=== PATIENT | female | born 1975 | race Caucasian/White ===

== ENCOUNTER 2018-11-21 11:23 | Inpatient (IN) | payer MEDICAID ==
[2018-11-21] MEDS ORDERED: NS 500 ML IV ONE (11:38)
--- NOTE | 2018-11-21 11:41 | EDPHY ---
H & P Stated Complaint: fell, hit back of head, feels weak Time Seen by Provider: 11/21/18 11:39 HPI/ROS: CHIEF COMPLAINT: Lightheaded, head injury HISTORY OF PRESENT ILLNESS: 43-year-old female female arrives via ambulance after she was entering her physical therapy office, felt lightheaded, had a syncopal episode impacted the occiput of his head. No seizure activity noted. No incontinence. No antecedent chest pain or headache. Currently she is complaining of "feeling weak " which she notes has been present for several weeks. No URI symptoms. No flu-like symptoms. No fever or chills. No cough. No dyspnea. Denies: Chest pain, dyspnea, back pain, midline C-spine pain, peripheral paresthesia, weakness, numbness, acute alcohol or drug use, nausea or vomiting, palpitations. PRIMARY CARE PROVIDER: Stefania Burton NP REVIEW OF SYSTEMS: 10 systems reviewed and negative with the exception of the elements mentioned in the history of present illness PAST MEDICAL/SURGICAL HISTORY: Prior history of CVA and atrial fibrillation post gastric bypass surgery at age 36. History of chronic back and hip pain . Chronic opiate dependence. no anticoagulant use, SOCIAL HISTORY: denies alcohol use at time of incident PHYSICAL EXAM 1) GENERAL: Alert oriented, Appears to be in no acute distress. Answering questions appropriately. 2) HEAD: Normocephalic, atraumatic no hematoma, no depression no laceration 3) HEENT: Pupils equal, round, reactive to light bilaterally. Negative Horners. Nasopharynx, oropharynx, clear. No deformity or angulation of nose. No septal hematoma. No rhinorrhea. No oral trauma. Ears bilaterally with normal tympanic membranes. No hemotympanum. No fluid or blood in the external auditory canal. No raccoon eyes. No Blue sign. Teeth are normally aligned with no gross malocclusion, TMJ bilaterally nontender, facial bones nontender including the zygomatic arch, maxilla mandible. 4) NECK: No pre-hospital cervical collar is on. Posterior cervical spine is examined. She is unable to differentiate true midline versus just lateral of midline lower cervical spine pain. No crepitus. No effusion. No fluctuance. Cervical collar placed at that time. 5) LUNGS: Clear to auscultation bilaterally, no wheezes, no rhonchi, no retractions. No obvious signs of trauma. No chest wall pain. No flaring, no grunting. Moving symmetrically. No crepitus. 6) HEART: [Regular rate and rhythm, 7) ABDOMEN: No guarding, no rebound, no focal tenderness, no peritoneal signs, no signs of trauma, no ecchymosis 8) MUSCULOSKELETAL: Moving all extremities, no focal areas of tenderness, no obvious trauma. 9) BACK: No midline vertebral tenderness, no fluctuance, no step-off, no obvious trauma, no visual or palpable abnormality. 10) SKIN: No laceration. No abrasion 11) NEURO: Awake, alert, and oriented to person, place and time. Answers questions appropriately. There were no obvious focal neurologic abnormalities. No cerebellar dysfunction. Cranial nerves 2 through to 12 intact. Normal steady gait. Upper and lower extremities bilaterally with strength 5 / 5, reflexes 2+. 12) CERVICAL NEURO EXAM: Bilateral reflexes of biceps triceps brachioradialis intact equal bilaterally Motor exam: deltoid, biceps, wrist extension, tricep, finger extension, finger flexion, finger abduction intact equal bilaterally 5/5 DIFFERENTIAL DIAGNOSIS: Syncope including but not limited to vasovagal syncope , arrhythmia, dehydration, and blood loss. - Personal History LMP (Females 10-55): Irregular Current Tetanus/Diphtheria Vaccine: Yes Current Tetanus Diphtheria and Acellular Pertussis (TDAP): Yes - Medical/Surgical History Hx Asthma: No Hx Chronic Respiratory Disease: No Hx Diabetes: No Hx Cardiac Disease: No Hx Renal Disease: No Hx Cirrhosis: No Hx Alcoholism: No Hx HIV/AIDS: No Hx Splenectomy or Spleen Trauma: No - Social History Smoking Status: Light smoker Constitutional: Initial Vital Signs Temperature (C) 36.9 C 11/21/18 11:28 Heart Rate 110 H 11/21/18 11:28 Respiratory Rate 16 11/21/18 11:28 Blood Pressure 103/71 11/21/18 11:28 O2 Sat (%) 96 11/21/18 11:28 O2 Delivery Mode Room Air Allergies/Adverse Reactions: carbamazepine [From Tegretol] Allergy (Verified 11/21/18 11:34) ketorolac [From Toradol] Allergy (Verified 11/21/18 11:34) tramadol Allergy (Verified 11/21/18 11:34) trazodone Allergy (Verified 11/21/18 11:34) Home Medications: Medication Instructions Recorded Aspirin EC [Aspirin EC 81 mg (*)] 81 mg PO DAILY 11/21/18 Meclizine HCl [Meclizine HCl 25 mg 25 mg PO BID 11/21/18 (RX,OTC)] Tapentadol HCl [Nucynta] 100 mg PO 11/21/18 oxyCODONE IR 10 mg 11/21/18 Medical Decision Making - Diagnostics Imaging Results: Imaging Impressions Head CT 11/21/18 11:45 Impression: 1. Negative. No acute intracranial hemorrhage or fracture. 2. Encephalomalacia involving the right caudate head and periventricular deep right frontal lobe, likely from old cerebrovascular accident. Findings discussed with Emergency Department physician news production assistant, Abisai Harper at 11/21/2018 13:11. Cervical Spine CT 11/21/18 11:47 Impression: 1. No acute fracture or soft tissue swelling. 2. If the patient has persistent pain or neurologic deficits, consider cervical spine MRI. 3. Right upper lobe airspace consolidation-aspiration, asymmetric edema, contusion, or evolving right upper lobe pneumonia. Findings discussed with Emergency Department physician news production assistant, Abisai Harper on 11/21/2018, 13:11. Chest X-Ray 11/21/18 14:14 Impression: 1. Patchy infiltrates throughout the right lung. Consider pneumonia versus possibility of aspiration or unilateral pulmonary edema. Images reviewed myself ED Course/Re-evaluation: 1:30 p.m.: Re-evaluation, patient feeling well. 1:55 p.m.: Patient complaining of nausea, will be given antiemetic. 2:15 p.m.: Re-evaluation, patient does not feel she is able to be discharged, does not feel she is able to care for herself at home, states she has been feeling weak. 2: 20 p.m.: Consultation with hospitalist Dr. Orr who will admit patient 3:00 p.m.: Re-evaluation with serial exams. Discussed with patient her x-rays interpreted by staff radiologist show him multiple patchy infiltrates. Patient has no complaints of URI symptoms, no cough , no dyspnea, no chest pain, no fever or chills, no recent illness. She is maintaining normal saturations with lungs that are clear bilaterally. Doubt sepsis. Will hold on antibiotic therapy. Care of patient under supervision of secondary supervising physician Dr Maldonado with whom I discussed case. - Data Points Laboratory Results: Laboratory Results 11/21/18 11:50 11/21/18 11/21/18 11/21/18 13:46 12:10 12:10 WBC RBC Hgb Hct MCV MCH MCHC RDW Plt Count MPV Neut % (Auto) Lymph % (Auto) Crenshaw % (Auto) Eos % (Auto) Baso % (Auto) Nucleat RBC Rel Count Absolute Neuts (auto) Absolute Lymphs (auto) Absolute Monos (auto) Absolute Eos (auto) Absolute Basos (auto) Absolute Nucleated RBC Immature Gran % Immature Gran # Sodium Pending REJ Potassium Pending REJ Chloride Pending REJ Carbon Dioxide Pending REJ Anion Gap Pending REJ BUN Pending REJ Creatinine Pending REJ Estimated GFR Pending REJ Glucose Pending REJ Calcium Pending REJ POC Troponin I Beta HCG, Qual NEGATIVE 11/21/18 11/21/18 11/21/18 11:53 11:50 11:50 WBC 13.44 10^3/uL H 10^3/uL (3.80-9.50) RBC 4.41 10^6/uL 10^6/uL (4.18-5.33) Hgb 14.1 g/dL g/dL (12.6-16.3) Hct 42.9 % % (38.0-47.0) MCV 97.3 fL fL (81.5-99.8) MCH 32.0 pg pg (27.9-34.1) MCHC 32.9 g/dL g/dL (32.4-36.7) RDW 14.8 % % (11.5-15.2) Plt Count 290 10^3/uL 10^3/uL (150-400) MPV 9.9 fL fL (8.7-11.7) Neut % (Auto) 85.2 % H % (39.3-74.2) Lymph % (Auto) 5.7 % L % (15.0-45.0) Crenshaw % (Auto) 7.9 % % (4.5-13.0) Eos % (Auto) 0.1 % L % (0.6-7.6) Baso % (Auto) 0.1 % L % (0.3-1.7) Nucleat RBC Rel Count 0.0 % % (0.0-0.2) Absolute Neuts (auto) 11.45 10^3/uL H 10^3/uL (1.70-6.50) Absolute Lymphs (auto) 0.77 10^3/uL L 10^3/uL (1.00-3.00) Absolute Monos (auto) 1.06 10^3/uL H 10^3/uL (0.30-0.80) Absolute Eos (auto) 0.01 10^3/uL L 10^3/uL (0.03-0.40) Absolute Basos (auto) 0.02 10^3/uL 10^3/uL (0.02-0.10) Absolute Nucleated RBC 0.00 10^3/uL 10^3/uL (0-0.01) Immature Gran % 1.0 % % (0.0-1.1) Immature Gran # 0.13 10^3/uL H 10^3/uL (0.00-0.10) Sodium REJ Potassium REJ Chloride REJ Carbon Dioxide REJ Anion Gap REJ BUN REJ Creatinine REJ Estimated GFR REJ Glucose REJ Calcium REJ POC Troponin I 0.00 ng/mL ng/mL (0.00-0.08) Beta HCG, Qual Medications Given: Discontinued Medications Sodium Chloride (Ns) 500 mls @ 1,000 mls/hr IV EDNOW ONE PRN Reason: Protocol Stop: 11/21/18 12:07 Last Admin: 11/21/18 12:29 Dose: 500 mls Sodium Chloride (Ns) 1,000 mls @ 0 mls/hr IV ONCE ONE PRN Reason: Wide Open Stop: 11/21/18 14:16 Last Admin: 11/21/18 14:31 Dose: 1,000 mls Ondansetron HCl (Zofran) 4 mg IVP EDNOW ONE Stop: 11/21/18 13:56 Last Admin: 11/21/18 13:56 Dose: 4 mg Point of Care Test Results: Chemistry 11/21/18 11:53 POC Troponin I 0.00 ng/mL ng/mL (0.00-0.08) Departure - Departure Disposition: [facility] In[facility] Acute Clinical Impression: Head injury Syncope Qualifiers: Syncope type: unspecified Qualified Code(s): R55 - Syncope and collapse Condition: Fair
--- NOTE | 2018-11-21 11:58 | CPEKG ---
Test Reason : OPEN Blood Pressure : / mmHG Vent. Rate : 110 BPM Atrial Rate : 110 BPM P-R Int : 129 ms QRS Dur : 072 ms QT Int : 312 ms P-R-T Axes : 071 262 055 degrees QTc Int : 423 ms Sinus tachycardia Left anterior fascicular block Consider left ventricular hypertrophy Confirmed by Khoa Ojeda ([id number]) on 11/21/2018 11:58:17 AM Referred By: KHOA OJEDA Confirmed By:Khoa Ojeda
[2018-11-21 12:01] LABS: PLATELET COUNT 290 10^3/uL (150-400)
[2018-11-21] MEDS ORDERED: ONDANSETRON 4 MG/2 ML VIAL ONE (13:53)
[2018-11-21] MEDS ORDERED: ONDANSETRON 4 MG/2 ML VIAL IVP ONE (13:55)
[2018-11-21] MEDS ORDERED: NS 1,000 ML IV ONE (14:15)
[2018-11-21] MEDS ORDERED: ONDANSETRON DISINTEGRATING 4 MG TAB PO PRN (14:46)
[2018-11-21] MEDS ORDERED: ONDANSETRON 4 MG/2 ML VIAL IVP PRN (14:46)
[2018-11-21] MEDS ORDERED: oxyCODONE IR 5 MG TAB PO PRN (14:46)
[2018-11-21] MEDS ORDERED: ACETAMINOPHEN 325 MG TAB PO PRN (14:46)
[2018-11-21] MEDS ORDERED: IBUPROFEN 200 MG TAB PO PRN (14:46)
--- NOTE | 2018-11-21 14:48 | PDGENHP ---
History and Physical - Chief Complaint fall - History of Present Illness 43yo F with history of gastric bypass in 2012 complicated by post-op atrial fibrillation and CVA presents after fall. She was being picked up to go to PT and felt very unsteady on her feet. No vertigo/dizziness. She was having trouble catching her balance and fell backward, striking her head. She did not lose consciousness. No antecedent chest pain, palpitations or shortness of breath. No recent infectious symptoms. She denies any seizure activity or loss of bowel/bladder control. She reports having episodes similar to this for at least 3-4 months but has not actually fallen before. She denies any recent medication changes. Reports 20-25# weight loss over last few months; doesn't eat very much. In the ED, she was unable to safely ambulate and felt unsafe to go home. She is being admitted for further evaluation and management. Reviewed her outpatient records in [facility]. She saw her PCP 11/11. These notes reports episodes of dizziness, ? syncope, orthostasis, and intermittent "loss of awareness." She has not had full evaluation of these episodes. History Information - Allergies/Home Medication List Allergies/Adverse Reactions: carbamazepine [From Tegretol] Allergy (Verified 11/21/18 15:08) Unknown ketorolac [From Toradol] Allergy (Verified 11/21/18 15:08) Unknown tramadol Allergy (Verified 11/21/18 15:08) Hives trazodone Allergy (Verified 11/21/18 15:08) Hives, Throat Swelling Home Medications: Amitriptyline HCl [Elavil 50 mg (*)] 50 mg PO HS 11/21/18 [Last Taken 11/20/18] Aspirin EC [Aspirin EC 81 mg (*)] 81 mg PO HS 11/21/18 [Last Taken 11/20/18] Cyclobenzaprine [Flexeril 10 MG (*)] 10 mg PO TID PRN 11/21/18 [Last Taken Unknown] Gabapentin [Neurontin] 600 mg PO TID 11/21/18 [Last Taken 11/20/18] Glycopyrrolate 1 mg PO BID 11/21/18 [Last Taken 11/20/18] Meclizine HCl 25 mg PO BID PRN 11/21/18 [Last Taken 11/20/18] Mirtazapine [Remeron] 15 mg PO HS 11/21/18 [Last Taken 11/20/18] Promethazine HCl [Phenergan 25mg (*)] 25 mg PO Q6H PRN 11/21/18 [Last Taken Unknown] Tapentadol HCl [Nucynta] 100 mg PO TID PRN 11/21/18 [Last Taken 11/20/18] Zolpidem Tartrate [Ambien] 10 mg PO HS 11/21/18 [Last Taken 11/19/18] oxyCODONE IR [Oxycodone Ir (*)] 10 mg PO BID 11/21/18 [Last Taken 11/20/18] I have personally reviewed and updated: family history, medical history, social history, surgical history - Past Medical History Additional medical history: gastric bypass complicated by post-operative atrial fibrillation and CVA with no residual deficits (2011), chronic pain with opiate use and dependency, DMITRI not on CPAP, depression - Surgical History Additional surgical history: gastric bypass, cholecystectomy, appendectomy, hysterectomy - Family History Positive for: non-pertinent - Social History Smoking Status: Light smoker Alcohol Use: None Drug Use: None Additional social history: Lives with mother and [id number]. Applying for disability. Review of Systems Review of Systems: ROS: 10pt was reviewed & negative except for what was stated in HPI & below Physical Exam Physical Exam: Temp Pulse Resp BP Pulse Ox 36.9 C 100 16 105/78 98 11/21/18 11:28 11/21/18 14:03 11/21/18 14:03 11/21/18 14:03 11/21/18 14:03 Constitutional: no apparent distress, other (appears older than stated age) Eyes: PERRL, anicteric sclera, EOMI Ears, Nose, Mouth, Throat: moist mucous membranes, other (edentulous, appears to have healed wounds/ulcers around mouth) Cardiovascular: regular rate and rhythym, no murmur, rub, or gallop, No JVD, No edema Respiratory: no respiratory distress, no rales or rhonchi, clear to auscultation Gastrointestinal: normoactive bowel sounds, soft, non-tender abdomen, no palpable masses Genitourinary: no bladder fullness, no bladder tenderness Skin: warm, normal color, no rashes or abrasions, no fluctuance, no induration, No mottled Neurologic: AAOx3, sensation intact bilaterally, CN II-XII Intact, No weakness, No numbness, No pronator drift Psychiatric: interacting appropriately Lab Data & Imaging Review 11/21/18 11:50 11/21/18 13:46 WBC 13.44 10^3/uL (3.80-9.50) H 11/21/18 11:50 RBC 4.41 10^6/uL (4.18-5.33) 11/21/18 11:50 Hgb 14.1 g/dL (12.6-16.3) 11/21/18 11:50 Hct 42.9 % (38.0-47.0) 11/21/18 11:50 MCV 97.3 fL (81.5-99.8) 11/21/18 11:50 MCH 32.0 pg (27.9-34.1) 11/21/18 11:50 MCHC 32.9 g/dL (32.4-36.7) 11/21/18 11:50 RDW 14.8 % (11.5-15.2) 11/21/18 11:50 Plt Count 290 10^3/uL (150-400) 11/21/18 11:50 MPV 9.9 fL (8.7-11.7) 11/21/18 11:50 Neut % (Auto) 85.2 % (39.3-74.2) H 11/21/18 11:50 Lymph % (Auto) 5.7 % (15.0-45.0) L 11/21/18 11:50 Woodward % (Auto) 7.9 % (4.5-13.0) 11/21/18 11:50 Eos % (Auto) 0.1 % (0.6-7.6) L 11/21/18 11:50 Baso % (Auto) 0.1 % (0.3-1.7) L 11/21/18 11:50 Nucleat RBC Rel Count 0.0 % (0.0-0.2) 11/21/18 11:50 Absolute Neuts (auto) 11.45 10^3/uL (1.70-6.50) H 11/21/18 11:50 Absolute Lymphs (auto) 0.77 10^3/uL (1.00-3.00) L 11/21/18 11:50 Absolute Monos (auto) 1.06 10^3/uL (0.30-0.80) H 11/21/18 11:50 Absolute Eos (auto) 0.01 10^3/uL (0.03-0.40) L 11/21/18 11:50 Absolute Basos (auto) 0.02 10^3/uL (0.02-0.10) 11/21/18 11:50 Absolute Nucleated RBC 0.00 10^3/uL (0-0.01) 11/21/18 11:50 Immature Gran % 1.0 % (0.0-1.1) 11/21/18 11:50 Immature Gran # 0.13 10^3/uL (0.00-0.10) H 11/21/18 11:50 Sodium REJ 11/21/18 12:10 Potassium REJ 11/21/18 12:10 Chloride REJ 11/21/18 12:10 Carbon Dioxide REJ 11/21/18 12:10 Anion Gap REJ 11/21/18 12:10 BUN REJ 11/21/18 12:10 Creatinine REJ 11/21/18 12:10 Estimated GFR REJ 11/21/18 12:10 Glucose REJ 11/21/18 12:10 Calcium REJ 11/21/18 12:10 POC Troponin I 0.00 ng/mL (0.00-0.08) 11/21/18 11:53 Beta HCG, Qual NEGATIVE 11/21/18 12:10 Visualized and Interpreted Chest x-ray results: Yes Visualized and Interpreted imaging results: Yes Interpretation: CXR: no focal infiltrate or effusion, normal heart size, mild increase in vascularity in right lung field Visualized and Interpreted EKG results: Yes EKG additional interpertation: ECG: NSR, early R wave progression (could be lead placement), normal intervals, no acute ischemic changes (interp by me) Assessment & Plan Assessment: 43yo F with history of gastric bypass in 2011 complicated by post-op atrial fibrillation and CVA presents after fall. Plan: 1. Fall with dysequilibrium: Non-focal neuro exam. Has had several brain MRIs, most recent 05/2018 with chronic right basal ganglia CVA. I do not think we need to repeat this. I suspect this is likely an issue with polypharmacy as virtually all of her medications are centrally acting. Also at risk for vitamin deficiency with bypass surgery so will eval for this. - PT/OT - Check B1, B2, B6, B12, vitamin C - Stop meclizine (no vertigo). Wean/taper meds as able 2. Sinus tachycardia: Suspect related to pain, dehydration. - Gentle IVF 3. Weight loss: Reports 20-25# over last few months. - Needs outpatient GI follow up (missed appointment with them yesterday) 3. H/o hemorrhagic CVA: No residual deficits. - Resume home aspirin 4. Chronic pain with opiate use and dependency - Continue home nucynta and oxycodone 10mg BID 5. Depression - Resume home elavil and remeron VTE ppx: LMWH Code: full Diet: regular Dispo: Admit under observation
[2018-11-21] MEDS ORDERED: MECLIZINE HCL 25 MG TAB PO PRN (15:41)
[2018-11-21] MEDS ORDERED: TAPENTADOL HCL 50 MG TAB PO PRN (15:41)
[2018-11-21] MEDS: GABAPENTIN 300 MG CAP PO SCH ×2 (16:46→21:33)
[2018-11-21] MEDS: CYCLOBENZAPRINE 10 MG TAB PO PRN ×2 (16:46→21:40)
[2018-11-21] MEDS: NS 1,000 ML IV SCH (16:46)
[2018-11-21] MEDS: PROMETHAZINE HCL 25 MG TAB PO PRN (17:27)
[2018-11-21] MEDS: oxyCODONE IR 5 MG TAB PO SCH (21:32)
[2018-11-21] MEDS: ASPIRIN EC 81 MG TAB PO SCH (21:33)
[2018-11-21] MEDS: MIRTAZAPINE 15 MG TAB PO SCH (21:33)
[2018-11-21] MEDS: AMITRIPTYLINE HCL 50 MG TAB PO SCH (21:33)
[2018-11-21] MEDS: ZOLPIDEM TARTRATE 5 MG TAB PO SCH (21:33)
[2018-11-22] MEDS: NS 1,000 ML IV SCH ×2 (01:23→08:48)
[2018-11-22] MEDS: GABAPENTIN 300 MG CAP PO SCH ×3 (08:41→23:05)
[2018-11-22] MEDS: ENOXAPARIN 40 MG/0.4 ML SYR SC SCH (08:41)
[2018-11-22] MEDS: oxyCODONE IR 5 MG TAB PO SCH ×2 (08:41→20:02)
[2018-11-22] MEDS: CYCLOBENZAPRINE 10 MG TAB PO PRN ×3 (08:48→20:01)
--- NOTE | 2018-11-22 10:12 | HOSPPROG ---
Hospitalist Progress Note Assessment/Plan: 43yo F with history of gastric bypass in 2011 complicated by post-op atrial fibrillation and CVA presents after fall. First encounter, chart reviewed. * Fall with dysequilibrium - recent MRI 05/2018 showed chronic right basal ganglia CVA. - possibly falling due to polypharmacy (on Nucynta, oxy, Flexeril, Meclizine)- reviewed w Allison my concern this is impacting her falling. - B1, B2, B6, B12, vitamin C (pending) - TSH stable - has some hypotension which may impact her in addition, will ask for orthostatics to be done *Sinus tachycardia -resolved w hydration -reviewed monitoring tech and she has be in sinus rhythm *Weight loss: Reports 20-25# over last few months. - Needs outpatient GI follow up (missed appointment) * H/o hemorrhagic CVA: No residual deficits. - Resume home aspirin *Chronic pain with opiate use and dependency - Continue home Nucynta and oxycodone 10mg BID * Depression - Resume home Elavil and Remeron *plan: awaiting PT and OT input, Allison is concerned about being home since her mom is out of town Subjective: Allison is not c/o pain. Objective: Vital Signs Temp Pulse Resp BP Pulse Ox 36.3 C 79 15 111/80 97 11/22/18 07:42 11/22/18 07:42 11/22/18 07:42 11/22/18 07:42 11/22/18 07:42 11/21/18 11/22/18 11/23/18 05:59 05:59 05:59 Intake Total 7471 738 Output Total 250 725 Balance 2471 13 - Physical Exam Constitutional: no apparent distress Eyes: PERRL Ears, Nose, Mouth, Throat: hearing normal Cardiovascular: regular rate and rhythym Respiratory: no respiratory distress Skin: warm Musculoskeletal: generalized weakness Neurologic: AAOx3 Psychiatric: interacting appropriately, not anxious, not encephalopathic ICD10 Worksheet Patient Problems: Problems Problem Status Onset Head injury Acute Syncope Acute
--- NOTE | 2018-11-22 12:13 | ASMTCMCOM ---
CM Note CM Note Notes: Pt has been admitted after a fall. She reported having episodes of being unsteady on her feet for past 3-4 months but this is her first fall. She has a hx of CVA after gastric bypass surgery in 2011, depression, and opiate use/dependence. She also reported significant weight loss and was scheduled for a GI appt - she will need to reschedule after her d/c. She was seen by her PCP 11/11. She lives with her mother and father in law and is applying for disability. PT/OT evals pending. CM will follow for any d/c needs. D/C plan: TBD Date Signed: 11/22/2018 12:12 PM Electronically Signed By:ML Biggs
[2018-11-22] MEDS: PROMETHAZINE HCL 25 MG TAB PO PRN (19:55)
[2018-11-22] MEDS: MIRTAZAPINE 15 MG TAB PO SCH (20:01)
[2018-11-22] MEDS: ASPIRIN EC 81 MG TAB PO SCH (20:01)
[2018-11-22] MEDS: AMITRIPTYLINE HCL 50 MG TAB PO SCH (20:01)
[2018-11-22] MEDS: ZOLPIDEM TARTRATE 5 MG TAB PO SCH (20:01)
[2018-11-22] MEDS ORDERED: ONDANSETRON 4 MG/2 ML VIAL IVP PRN (23:50)
[2018-11-23] MEDS: ONDANSETRON DISINTEGRATING 4 MG TAB PO PRN ×2 (00:38→10:12)
[2018-11-23 07:05] VITALS: BP 125/92
[2018-11-23] MEDS: oxyCODONE IR 5 MG TAB PO SCH (08:07)
[2018-11-23] MEDS: ENOXAPARIN 40 MG/0.4 ML SYR SC SCH (08:07)
[2018-11-23] MEDS: GABAPENTIN 300 MG CAP PO SCH (08:08)
[2018-11-23] MEDS: PROMETHAZINE HCL 25 MG TAB PO PRN (08:08)
[2018-11-23] MEDS: CYCLOBENZAPRINE 10 MG TAB PO PRN (08:08)
--- NOTE | 2018-11-23 08:27 | HOSPPROG ---
Hospitalist Progress Note Assessment/Plan: 43yo F with history of gastric bypass in 2011 complicated by post-op atrial fibrillation and CVA presents after fall. * Fall with dysequilibrium - recent MRI 05/2018 showed chronic right basal ganglia CVA. - possibly falling due to polypharmacy (on Nucynta, oxy, Flexeril, Meclizine)- reviewed w Allison my concern this is impacting her falling. - B1, B2, B6, vitamin C (pending) - TSH stable, B12 is 469 *Sinus tachycardia -resolved w hydration -reviewed cafeteria monitor and she has be in sinus rhythm *Weight loss: Reports 20-25# over last few months. - Needs outpatient GI follow up (missed appointment) * H/o hemorrhagic CVA: No residual deficits. - Resume home aspirin *Chronic pain with opiate use and dependency - Continue home Nucynta and oxycodone 10mg BID * Depression - Resume home Elavil and Remeron *plan: encourage Allison to wean back on her pain medications under a doctor's supervision. Suspect this is the etiology of why she is falling. DC home today. Subjective: Allison feels fine, eating and drinking well, not lightheaded. Objective: Vital Signs Temp Pulse Resp BP Pulse Ox 36.6 C 86 16 125/92 H 96 11/23/18 07:03 11/23/18 07:03 11/23/18 07:03 11/23/18 07:03 11/23/18 07:03 11/22/18 11/23/18 11/24/18 05:59 05:59 05:59 Intake Total 2721 2038 Output Total 250 2425 Balance 2471 -387 - Physical Exam Constitutional: no apparent distress, appears nourished, not in pain Eyes: PERRL Ears, Nose, Mouth, Throat: hearing normal Cardiovascular: regular rate and rhythym Respiratory: no respiratory distress Skin: warm Neurologic: AAOx3 Psychiatric: interacting appropriately ICD10 Worksheet Patient Problems: Problems Problem Status Onset Head injury Acute Syncope Acute
--- NOTE | 2018-11-23 10:09 | GDS ---
[f rep st] DISCHARGE SUMMARY DISCHARGE DIAGNOSES: 1. Fall, with disequilibrium. 2. Sinus tachycardia. 3. Weight loss. 4. History of hemorrhagic cerebrovascular accident without residual effects. 5. Chronic pain with opiate use and dependency. 6. Depression. HISTORY OF PRESENT ILLNESS: Briefly, the patient is a 43-year-old female with a history of gastric b ypass in 2011, complicated by postop operative atrial fibrillation, CVA. She presented after she had a fall at home. She was admitted and seen by Physical Therapy and Occupational Therapy. She still has little bit of dizziness. I suspect this may be due to some of her pain medications, as well as F lexeril. Encouraged to follow up with her PCP. HOSPITAL COURSE: 1. Fall, with disequilibrium. She had a recent MRI in May that showed a chronic right basal gang annie CVA. She has no symptoms to suggest any further stroke. I suspect this is all due from polyphar stefania. 2. Sinus tachycardia, resolved with hydration. 3. Weight loss. She reports 20 to 25 pounds weight loss over the last few months. She had an appoi ntment that she missed with Gastroenterology, recommended she followup. 4. History of hemorrhagic CVA without residual effects. Resumed her home aspirin. 5. Chronic pain with opiate use and dependency. Her Nucynta and oxycodone have been resumed. 6. Depression, on Elavil and Remeron. DISCHARGE CONDITION: Stable. Blood pressure is 125/92, heart rate of 86, respiratory rate 16, O2 sa ts on room air 96%, temperature is 36.6 Celsius. MEDICATIONS AT DISCHARGE: Please see the EMR. DISCHARGE INSTRUCTIONS: 1. To follow up with her travel trailer components assembler and get further evaluation, especially with significant weight loss. 2. She has multiple labs pending, to have her primary care follow up with these. 3. Recommending stopping Flexeril because I suspect this is making her extremely dizzy. Copy requested to: NONE *PRIMARY CARE PHYS ONLY* /[id number]/MODL
--- NOTE | 2018-11-23 10:32 | PDMN ---
Medical Necessity Medical necessity: Pt meets IP criteria as of 11/22/2018 per and [facility] CG-GDC ( General Discharge Criteria [facility]); los > 2 mn as pt is unable to ambulate and perform ADL's at her baseline and continues to be high fall risk with h/o frequent falls at home; requiring medication management, PT and OT.
--- NOTE | 2018-11-23 17:15 | ASMTLACE ---
CLA[place] Length of stay for Answers: 1 day current admission Acuity / Level of Answers: No Care: Did the patient have an inpatient admission? Comorbidities - select Answers: Cerebrovascular disease all that apply (CVA, TIA, aneurysms, vasc ular dementia) Opioid dependence / Chronic pain # of Emergency department Answers: 1-2 visits in the last 6 months Social determinants Answers: History of substance abuse (ETOH, street drugs, prescription drugs, etc.) Score: 10 Date Signed: 11/23/2018 05:15 PM Electronically Signed By:Munira Dhaliwal RN
--- NOTE | 2018-11-23 23:18 | ASDISCHSUM ---
Discharge Information Plan Status:Home with No Needs Medically Cleared to Leave:11/22/2018 Discharge Date:11/23/2018 01:02 PM CM D/C Disposition:Home, Routine, Self-Care ADT D/C Disposition:Home, Routine, Self-Care Projected Discharge Date:11/23/2018 01:02 PM Transportation at D/C:Family Discharge Delay Reason: Follow-Up Date:11/23/2018 01:02 PM Discharge Slot:2 - 12:01 pm - 18:00 pm Final Diagnosis:Syncope, hx CVA, depression, anxiety, opiate dependence Placement Information Patient Contact Information Contact Name:MARLENE Relationship:Friend Address:[address] City:[place] Alternate Phone: [facility]/Zip Code:[place] [address] Email: Financial Information Financial Class:Medicaid Primary Plan Desc:[employer]ICA[employer] Primary Plan Number:[id number] Secondary Plan Desc: Secondary Plan Number: Assessment Information LACE LACE Length of stay for Answers: 1 day current admission Acuity / Level of Answers: No Care: Did the patient have an inpatient admission? Comorbidities - select Answers: Cerebrovascular disease all that apply (CVA, TIA, aneurysms, vasc ular dementia) Opioid dependence / Chronic pain # of Emergency department Answers: 1-2 visits in the last 6 months Social determinants Answers: History of substance abuse (ETOH, street drugs, prescription drugs, etc.) Score: 10 Date Signed: 11/23/2018 05:15 PM Electronically Signed By:Munira Dhaliwal RN [facility] JACIEL Progress Note CM Note JACIEL Note Notes: Pt has been admitted after a fall. She reported having episodes of being unsteady on her feet for past 3-4 months but this is her first fall. She has a hx of CVA after gastric bypass surgery in 2011, depression, and opiate use/dependence. She also reported significant weight loss and was scheduled for a GI appt - she will need to reschedule after her d/c. She was seen by her PCP 11/11. She lives with her mother and father in law and is applying for disability. PT/OT evals pending. CM will follow for any d/c needs. D/C plan: TBD Date Signed: 11/22/2018 12:12 PM Electronically Signed By:ML Biggs Case Management Discharge Plan Note Case Management Discharge Discharge Order Complete? Answers: Yes Patient to Obtain Answers: via Family Medications Transportation Arranged Answers: Family/Friends Transport will Pick (Date 11/23/2018 12:00 AM & Time) EMTALA Complete Answers: No Notes: N/A Case Management Transport Answers: No Notes: N/A Form Complete Faxed Final Orders Answers: No Notes: N/A Agency/Facility Transfer Answers: No Notes: N/A Report Printed & Faxed to Receiving Agency Family Notified Answers: Yes Notes: Pt notified parents. Discharge Comments Notes: Reviewed chart, spoke with Sun Lamas NP regarding discharge plan of care, pt's progress. Per Sun, pt to discharge home independently with family support and no identified needs today. PT/OT cleared pt for discharge. Pt encouraged to cut back on narcotic use. Update provided to LINDA Fontenot. No IM/GOEL forms signed, not applicable. Pt to follow up as directed. CM available for any further issues or concerns. Discharge Plan: Home independently with family support Date Signed: 11/23/2018 11:16 PM Electronically Signed By:Munira Dhaliwal RN Intervention Information
== END 2018-11-23 13:02 | disposition home or self-care (01) | DRG 111 ==
LOC: EDUNIT# → F3E 16:15 → OBSVTOIN 11-22 15:10
PROVIDERS: ADMIT Internal Medicine; ATTEND Internal Medicine
DX: R42 Dizziness and giddiness (principal); F11.20 Opioid dependence, uncomplicated; W18.39XA Other fall on same level, initial encounter; Y92.531 Health care provider office as the place of occurrence of the external cause; T50.7X5A Adverse effect of analeptics and opioid receptor antagonists, initial encounter; R00.0 Tachycardia, unspecified; E86.9 Volume depletion, unspecified; G89.29 Other chronic pain; F32.9 Major depressive disorder, single episode, unspecified; Z98.84 Bariatric surgery status; Z86.73 Personal history of transient ischemic attack (TIA), and cerebral infarction without residual deficits; Z72.0 Tobacco use
CPT/HCPCS: 82180-90; 82607-90; 84207-90; 84252-90; 84484-ER; 92523-GN; 96374; 97112-GP; 97162-GP; 97165-GO; G0378; J1650; J2405